=== PATIENT | male | born 1995 | race Two or more races ===

== ENCOUNTER 2017-12-20 19:26 | Emergency (ER) | payer SELFPAY ==
[~2017-12-20] VITALS: Ht 177.8 cm; Wt 81.6 kg
[2017-12-20 20:41] VITALS: BP 127/80
--- NOTE | 2017-12-20 20:50 | NUR ---
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
[2017-12-20] MEDS ORDERED: predniSONE 20 MG TABLET PO ONE (22:00)
[2017-12-20] MEDS ORDERED: predniSONE 20 MG TABLET ONE (22:03)
== END 2017-12-20 22:06 | disposition home or self-care (01) ==
LOC: ER 19:29
DX: J20.9 Acute bronchitis, unspecified (principal); G43.909 Migraine, unspecified, not intractable, without status migrainosus; J45.909 Unspecified asthma, uncomplicated; F19.10 Other psychoactive substance abuse, uncomplicated; F17.200 Nicotine dependence, unspecified, uncomplicated; Z88.0 Allergy status to penicillin
CPT/HCPCS: 71046; A4606; Z7610